=== PATIENT | male | born 1930 | race Caucasian/White ===

== ENCOUNTER 2016-05-09 10:22 | Emergency (ER) | payer MEDICARE ==
[2016-05-09 10:38] VITALS: TEMP 98.5
--- NOTE | 2016-05-09 11:20 | RAD ---
EXAM DESCRIPTION: XR CHEST 2 VIEWS 05/09/2016 CLINICAL HISTORY: 85 y/o , M, edema, new flutter COMPARISON: None. FINDINGS: The lungs are clear without focal consolidation or pleural effusion. The heart is enlarged. The mediastinal contours are normal in appearance. There are vascular calcifications along the aortic arch. There is a healed right midclavicular fracture. The rest of the osseous structures are normal in appearance. The upper abdomen is grossly normal. IMPRESSION: Cardiomegaly, otherwise no acute cardiopulmonary disease. Electronically signed by: Brook Zayas MD 05/09/2016 11:19
[2016-05-09] MEDS ORDERED: FUROSEMIDE INJ 40 MG/4 ML VIAL IV ONE (12:40)
[2016-05-09] MEDS ORDERED: cefTRIAXone SODIUM 1 GM in SODIUM CHL 0.9% 50ML MIN-BAG+ 50 ML IVPB ONE (12:55)
[2016-05-09] MEDS ORDERED: METOPROLOL TARTRATE 25 MG TAB PO ONE (13:02)
[2016-05-09] MEDS ORDERED: cefTRIAXone SODIUM 1 GM VIAL ONE (13:03)
[2016-05-09] MEDS ORDERED: ENOXAPARIN SODIUM 100 MG/ML SYG SUBCU ONE (13:04)
[2016-05-09] MEDS ORDERED: SODIUM CHL 0.9% 50ML MIN-BAG+ 50 ML IVPB ONE (13:04)
--- NOTE | 2016-05-09 14:12 | ED.PDOC ---
History of Present Illness - General Chief Complaint: Cardiovascular Problem Stated Complaint: irregular heart rate,swelling Time Seen by Provider: 05/09/16 10:29 Source: patient Exam Limitations: no limitations - History of Present Illness Initial Comments: the patient is an 85-year-old male who presented to the emergency room due to mild progressive shortness of breath over the last few days as well as increasing swelling to bilateral hands over the last few days with the right more than the left. The patient has had some increasing edema to bilateral feet over the last 3 months. He did have a bilateral lower extremity Doppler that was negative for any DVT approximately 1 month ago. It is reported that he had an EKG around that same time showed a sinus rhythm. I do not have that EKG to confirm that. He is not having any chest pain or palpitations. He is not having any syncope or near-syncope. He does get mildly short of breath with any activity. He is not significantly short of breath with lying back. Oxygen saturations are around 93-94% with sitting up and do drop to around 90% with lying back. The patient does have +3 edema to bilateral lower extremity and +2 edema to the right hand as well as +1 edema to the left hand. He and family are fairly adamant that the swelling in the hands has just occurred over the last couple of days. Timing/Duration: unsure Severity: mild Improving Factors: nothing Worsening Factors: nothing Associated Symptoms: cough, malaise, shortness of breath Allergies/Adverse Reactions: Allergies NO KNOWN ALLERGY Allergy (Verified 05/09/16 10:55) Review of Systems - Review of Systems Constitutional: States: no symptoms reported EENTM: States: no symptoms reported Respiratory: States: cough - mild, short of breath Cardiology: States: edema Gastrointestinal/Abdominal: States: no symptoms reported Genitourinary: States: no symptoms reported Musculoskeletal: States: no symptoms reported Skin: States: no symptoms reported Neurological: States: no symptoms reported All other Systems: No Change from Baseline Past Medical History (General) - Patient Medical History Hx Asthma: Yes Hx Cardiac Disorders: Yes Hx Congestive Heart Failure: No Hx Hypertension: Yes Hx Diabetes: Yes - Vaccination History Hx Influenza Vaccination: Yes Hx Pneumococcal Vaccination: Yes - Social History Hx Tobacco Use: No Family Medical History - Family History Father Family History: Unknown Living Status: Physical Exam - Physical Exam General Appearance: Alert, Comfortable, No apparent distress Eye Exam: bilateral normal Ears, Nose, Throat: normal ENT inspection, normal pharynx Neck: full range of motion, supple, normal inspection Respiratory: chest non-tender, no respiratory distress, no accessory muscle use , other - the patient does have some bibasilar rales. No wheezes. Good air movement. Cardiovascular/Chest: normal peripheral pulses, no edema, other - regular rate but irregular rhythm Peripheral Pulses: radial,right: 2+, radial,left: 2+, dorsalis pedis,right: 2+, dorsalis pedis,left: 2+ Gastrointestinal/Abdominal: non tender, soft Rectal Exam: deferred Back Exam: normal inspection, no CVA tenderness Extremity: normal range of motion, non-tender, normal inspection, no pedal edema , normal capillary refill Neurologic: alert, normal mood/affect, oriented x 3 Skin Exam: normal color Comments: Vital Signs - 24 hr 05/09/16 05/09/16 05/09/16 10:34 11:14 11:47 Temperature 98.5 F Pulse Rate [ 99 H 90 Right Brachial] Respiratory 20 Rate Blood Pressure 111/76 [Right Arm] O2 Sat by Pulse 94 L 96 Oximetry Progress - Progress Progress: 05/09/16 14:14 the patient is a 85-year-old male presenting with edema that has progressed to the upper extremities. He does appear to have new onset atrial flutter with good rate control sometime within the last 1-2 months. He has not been on significant anticoagulation and was given a dose of Lovenox here. He is not hypoxic and not in respiratory distress but he has had a significant deterioration still over the last 2 days. For this reason I do feel it is pertinent that he be evaluated by cardiology in the more rapid manner. He does not appear to be tolerating theatrial flutter, even with rate controll, very well. there may be some background ischemia contributing that needs evaluation. we will transfer for cardiac evaluation. He has been given Lovenox and a dose of Lasix. He has started to diurese. Systolic blood pressures have been around 110. He has received a dose of oral metoprolol. I'm uncomfortable at this time given medications for cardioversion, without an echocardiogram first. Transfer for higher level of care.he does also incidentally, appear to have a small urinary tract infection. He has received a dose of Rocephin here for that. 05/09/16 14:18 - Results/Orders Results/Orders: Laboratory Tests 05/09/16 05/09/16 10:45 11:47 WBC 7.5 RBC 3.98 L Hgb 11.6 L Hct 36.0 L MCV 90.4 MCH 29.1 MCHC 32.4 L RDW 14.4 Plt Count 188 MPV 8.7 Absolute Neuts (auto) 5.60 Absolute Lymphs (auto) 1.00 Absolute Monos (auto) 0.70 Absolute Eos (auto) 0.10 Absolute Basos (auto) 0.10 Neutrophils % 74.1 Lymphocytes % 12.8 L Monocytes % 10.0 H Eosinophils % 1.8 Basophils % 1.3 PT 13.8 H INR 1.230 PTT (SP) 30.6 D-Dimer, Quantitative 319 H* Sodium 140 Potassium 4.2 Chloride 108 Carbon Dioxide 24 Anion Gap 12.2 BUN 23 H Creatinine 0.83 BUN/Creatinine Ratio 27.7 H Random Glucose 64 L Serum Osmolality 281.2 Calcium 8.7 Magnesium 2.0 Total Bilirubin 0.9 AST 28 ALT 20 Alkaline Phosphatase 68 Creatine Kinase 188 H CK-MB (CK-2) 4.6 H* CK-MB (CK-2) % 2.45 Troponin I 0.04 B-Natriuretic Peptide 300.0 H* Serum Total Protein 7.1 Albumin 3.8 Globulin 3.3 Albumin/Globulin Ratio 1.2 TSH 1.75 Urine Color Yellow Urine Appearance Cloudy Urine pH 6.0 Ur Specific [place] 1.025 Urine Protein Trace Urine Glucose (UA) Negative Urine Ketones Negative Urine Blood Trace-lysed H Urine Nitrite Positive H Urine Bilirubin Negative Urine Urobilinogen >= 8.0 H Ur Leukocyte Esterase Small H Urine RBC 0-1 Urine WBC 10-20 H Ur Epithelial Cells 10-20 Urine Bacteria 2+ H Departure - Departure Clinical Impression: Atrial flutter with controlled response, Cystitis CHF, acute on chronic Qualifiers: Congestive heart failure type: unspecified congestive heart failure type Qualifier Code: (I50.9) Heart failure, unspecified Disposition: Transfer to Hospital Referrals: Jeremiah Chapman MD [Primary Care Provider] - 1-2 Weeks Transfer to Outside Facility - [place] [facility] [place] for Transfer: required specialist not available - dr jc
[2016-05-09 23:07] VITALS: BP 153/92
[2016-05-10 00:16] VITALS: O2SAT 95
== END 2016-05-09 23:45 | disposition short-term general hospital (02) ==
LOC: ER 10:22
DX: I48.92 Unspecified atrial flutter (principal); N30.90 Cystitis, unspecified without hematuria; I11.0 Hypertensive heart disease with heart failure; I50.9 Heart failure, unspecified; J45.909 Unspecified asthma, uncomplicated; E11.9 Type 2 diabetes mellitus without complications
CPT/HCPCS: 36415; 71020; 80053; 81001; 82550; 82553; 83735; 83880; 84443; 84484; 85025; 85379; 85610; 85730; 87086; 87088; 87186; 93005; J0696; J1650; J1940; J7050

== ENCOUNTER → 2016-06-02 | Outpatient (CLI) | payer MEDICARE | END | disposition home or self-care (01) | LOC: GMAB 14:33 | PROVIDERS: ATTEND Family Medicine | DX: M79.641 Pain in right hand (principal) ==

== ENCOUNTER → 2016-06-17 | Outpatient (CLI) | payer MEDICARE ==
--- NOTE | 2016-06-18 07:19 | CT ---
EXAM DESCRIPTION: CT CHEST WITHOUT IV CONTRAST CLINICAL HISTORY: Thoracic aortic aneurysm. COMPARISON: None Available. TECHNIQUE: Noncontrast spiral CT of the chest with coronal and sagittal reformatted images. FINDINGS: Tortuous mildly ectatic thoracic aorta. Greatest transverse dimension ascending aorta 4.4 cm. Heart size is slightly enlarged. Coronary artery calcifications Moderate sized pericardial effusion. No nodularity. No infiltration of the epicardial or pericardial fat No mediastinal or hilar mass lesion or adenopathy Thyroid gland is normal Calcified granuloma at the left lung apex. No pulmonary edema, alveolar infiltrate or effusion No mass or adenopathy in the visualized upper abdomen Multilevel degenerative change in the thoracic spine. No acute bony abnormality IMPRESSION: Moderate size pericardial effusion and pulmonary process Old granulomatous disease Tortuous ectatic aorta, 4.4 cm greatest transverse dimension Electronically signed by: Zan Winston MD 06/18/2016 07:17
== END | disposition home or self-care (01) ==
LOC: CT 08:10
PROVIDERS: ATTEND Internal Medicine Cardiovascular Disease
DX: I72.0 Aneurysm of carotid artery (principal)

== ENCOUNTER → 2016-08-17 | Outpatient (CLI) | payer MEDICARE | END | disposition home or self-care (01) | LOC: GMAB 11:12 | PROVIDERS: ATTEND Family Medicine | DX: Z12.5 Encounter for screening for malignant neoplasm of prostate (principal); I10 Essential (primary) hypertension | CPT/HCPCS: 84443; 84550; G0103 ==

== ENCOUNTER → 2017-06-28 | Outpatient (CLI) | payer MEDICARE ==
--- NOTE | 2017-06-28 11:20 | US ---
Soft tissue ultrasound HISTORY: Pain in right knee COMPARISON: None TECHNIQUE: Grayscale and color Doppler sonographic evaluation of soft tissue anterior and posterior to right knee FINDINGS: Irregularly-shaped and heterogeneous fluid collection is identified anterior to the knee joint measuring 2.8 x 1.7 x 1.1 cm. There is no obvious internal or marginal vascularity for this finding which is also not well loculated. There is heterogeneous echotexture within this fluid collection. Posterior to the knee, in the popliteal fossa, is a curvilinear fluid collection measuring 6.1 x 3.1 x 1.3 cm with slightly heterogeneous echotexture internally but no internal nor marginal vascularity. Popliteal vein is unremarkably patent. IMPRESSION: 1. Possible hematoma or very early phlegmon anterior to right knee. 2. Popliteal fossa cyst in right knee Electronically signed by: Yobany Monteiro MD 06/28/2017 11:19 AM FIRM ADMINISTRATOR
== END ==
LOC: US 10:32
PROVIDERS: ATTEND Nurse Practitioner Family
DX: M25.469 Effusion, unspecified knee (principal); M71.21 Synovial cyst of popliteal space [Baker], right knee

== ENCOUNTER 2018-12-05 05:39 | Day surgery (SDC) | payer MEDICARE ==
[2018-12-05] MEDS ORDERED: MOXIFLOXACIN HCL (OPHTH) 1 DROP DROPS ONE (05:54)
[2018-12-05] MEDS ORDERED: TROP 1%/CYCLOPEN 1%/PHENYL 2% DROPS ONE (05:54)
[2018-12-05] MEDS ORDERED: PROPARACAINE 0.5% OPHTH SOL 15 ML BTTL ONE (05:54)
[2018-12-05] MEDS ORDERED: MIDAZOLAM INJ 2 MG/2 ML VIAL ONE (11:04)
[2018-12-05] MEDS ORDERED: LIDOCAINE 1% MPF 2 ML VIAL INJ ONE (11:12)
[2018-12-05] MEDS ORDERED: MOXIFLOXACIN HCL (OPHTH) 1 DROP DROPS RIGHT_EYE ONE ×2 (11:13→11:22)
[2018-12-05] MEDS ORDERED: BRIMONIDINE 0.2% OPHTH DROPS RIGHT_EYE ONE ×2 (11:13→11:22)
[2018-12-05] MEDS ORDERED: TOBRAMYCIN SULF 0.3 % OPHT SOL 1 DROP RIGHT_EYE ONE ×2 (11:13→11:22)
[2018-12-05] MEDS ORDERED: DEXAMETHASONE 0.1% OPHTH SOL 1 DROP RIGHT_EYE ONE ×2 (11:13→11:22)
== END 2018-12-05 11:56 | disposition home or self-care (01) ==
LOC: AMB 05:39
PROVIDERS: ATTEND Ophthalmology
DX: H25.11 Age-related nuclear cataract, right eye (principal); I10 Essential (primary) hypertension; I25.10 Atherosclerotic heart disease of native coronary artery without angina pectoris; E11.36 Type 2 diabetes mellitus with diabetic cataract; Z79.84 Long term (current) use of oral hypoglycemic drugs; Z79.01 Long term (current) use of anticoagulants; Z79.899 Other long term (current) drug therapy
CPT/HCPCS: 00142; 36416; 66984; 82948; J2250

== ENCOUNTER 2018-12-19 05:32 | Day surgery (SDC) | payer MEDICARE ==
[2018-12-19] MEDS ORDERED: TROP 1%/CYCLOPEN 1%/PHENYL 2% DROPS ONE (05:59)
[2018-12-19] MEDS ORDERED: MIDAZOLAM INJ 2 MG/2 ML VIAL ONE (07:10)
[2018-12-19] MEDS: PROPARACAINE 0.5% OPHTH SOL 15 ML BTTL ONE (09:16)
[2018-12-19] MEDS: MOXIFLOXACIN HCL (OPHTH) 1 DROP DROPS LEFT_EYE ONE ×2 (09:23→09:32)
[2018-12-19] MEDS: DEXAMETHASONE 0.1% OPHTH SOL 1 DROP LEFT_EYE ONE ×2 (09:23→09:32)
[2018-12-19] MEDS: BRIMONIDINE 0.2% OPHTH DROPS LEFT_EYE ONE ×2 (09:23→09:32)
[2018-12-19] MEDS: LIDOCAINE 1% MPF 2 ML VIAL INJ ONE (09:23)
[2018-12-19] MEDS: TOBRAMYCIN SULF 0.3 % OPHT SOL 1 DROP LEFT_EYE ONE ×2 (09:23→09:32)
== END 2018-12-19 10:15 | disposition home or self-care (01) ==
LOC: AMB 05:32
PROVIDERS: ATTEND Ophthalmology
DX: H25.12 Age-related nuclear cataract, left eye (principal); E11.36 Type 2 diabetes mellitus with diabetic cataract; Z79.01 Long term (current) use of anticoagulants; Z79.899 Other long term (current) drug therapy
CPT/HCPCS: 00142; 36416; 66984; 82948; J2250

== ENCOUNTER 2019-11-12 14:50 | Inpatient (IN) | payer MEDICARE ==
[2019-11-12] MEDS ORDERED: SODIUM CHLORIDE 0.9% (FLUSH) 10 ML SYG IV PRN (16:25)
--- NOTE | 2019-11-12 16:26 | ED.PDOC ---
History of Present Illness - General Time Seen by Provider: 11/12/19 16:25 Source: patient - History of Present Illness Initial Comments: 88-year-old male with PMH of hypertension, CHF, diabetes, A. fib on Eliquis who presents with chief complaint of left lower leg pain. Reports he had a fall 4 days ago at home and sustained injury to the lateral aspect of the left lower leg. Reports worsening pain, redness, and swelling to the lateral aspect of the left lower leg since the injury. Currently reports minimal pain at rest but reports moderate severity sharp/throbbing constant pain to the lateral lower left leg with any weightbearing and walking and causing him to limp. He is taking some [id number] analgesics with good pain control. He was seen a couple days ago in the clinic since the area had worsening redness and swelling. X-ray imaging was done which apparently showed no fractures. The patient was discharged home on oral antibiotics and he reports compliance with the treatment. However the redness and swelling have continued to worsen. Denies any fevers, chills, chest pain, dyspnea, abdominal pain, weakness, numbness. Denies any history of blood clots. Allergies/Adverse Reactions: Allergies NO KNOWN ALLERGY Allergy (Verified 11/12/19 18:03) Home Medications: Ambulatory Orders Allopurinol 300 mg PO DAILY 12/05/18 Apixaban [Eliquis] 2.5 mg PO DAILY 12/05/18 Aspirin [Aspirin EC] 81 mg PO DAILY 12/05/18 Atorvastatin Calcium [Lipitor] 20 mg PO DAILY 12/05/18 Cyanocobalamin [Vitamin B-12] 1,000 mcg PO DAILY 12/05/18 Diltiazem HCl 30 mg PO DAILY 12/05/18 Doxazosin Mesylate 4 mg PO DAILY 12/05/18 Furosemide 40 mg PO DAILY 12/05/18 Lisinopril 20 mg PO DAILY 12/05/18 Metformin HCl [Metformin Hydrochloride E] 250 mg PO DAILY 12/05/18 Sotalol [Betapace] 40 tablet PO BID 12/05/18 diphenhydrAMINE HCL [Benadryl] 75 mg PO PRN PRN 12/05/18 Review of Systems - Review of Systems Review of Systems: 11/12/19 16:55 As per HPI All other Systems: Reviewed and Negative Past Medical History (General) - Patient Medical History Hx Asthma: Yes Hx Cardiac Disorders: Yes Hx Congestive Heart Failure: No Hx Hypertension: Yes Hx Diabetes: Yes - Vaccination History Hx Influenza Vaccination: Yes Hx Pneumococcal Vaccination: Yes - Social History Hx Tobacco Use: No Family Medical History - Family History Father Family History: Unknown Living Status: Physical Exam - Physical Exam General Appearance: Alert, Comfortable, No apparent distress, Obese Eye Exam: bilateral normal Ears, Nose, Throat: hearing grossly normal, normal ENT inspection, normal pharynx Neck: non-tender, full range of motion, supple, normal inspection Respiratory: lungs clear, normal breath sounds, no respiratory distress, no accessory muscle use Cardiovascular/Chest: normal peripheral pulses, regular rate, rhythm, no gallop, no JVD, no murmur Peripheral Pulses: radial,right: 2+, radial,left: 2+ Gastrointestinal/Abdominal: non tender, soft, no organomegaly Back Exam: normal inspection Extremity: other - The left lower leg has 3+ pitting edema involving the foot, ankle and all the way up to the upper calf. To the lateral aspect of the left lower leg there is an approximately 3 x 3 cm abrasion wound with underlying area of redness/warmth/erythema approximately 6 x 6 cm in size which is markedly tender to palpation. Neurologic: rate supervisor II-XII nml as tested, no motor/sensory deficits, alert, normal mood/affect, oriented x 3 Skin Exam: warm/dry Progress - Progress Progress: 11/12/19 16:57 Left lower extremity pain and swelling -Concern for cellulitis of the left lower extremity. Consider also left lower extremity fracture, DVT, abscess, other. -Obtain blood work, blood cultures, x-ray imaging of the left tib-fib and foot -Place PIV, begin IV antibiotics. Plan for admission as patient has failed trial of outpatient oral antibiotics and appears to be rapidly worsening in setting of his chronic medical conditions, especially diabetes. 11/12/19 18:19 -Patient remains stable. Lab work-up reveals WBC 8500 with 72% segs and no bands. Remainder blood work unremarkable. X-ray imaging of the left foot and tib-fib reveal soft tissue swelling but no acute bony processes or fractures. -I discussed the patient with Manuel Olson, who accepts the patient for inpatient admission for left lower extremity cellulitis. We will begin the patient on IV antibiotics with vancomycin 1500 mg IV. As d-dimer test are running extremely low at the moment, withheld this test in light that patient is on Coumadin and that he will receive Doppler venous ultrasound of the lower extremity likely tomorrow as an inpatient. Diogo Boyd MD Billing #[id number] 11/12/19 16:25 Sodium Chloride 0.9% (Flush) [Saline Flush Syringe] 10 ml IV PRN PRN 11/12/19 17:08 BLOOD CULTURE Stat 11/12/19 17:42 RESPIRATORY PANEL 2 Stat 11/12/19 18:15 Vancomycin HCl Inj 1,000 mg Vancomycin HCl Inj 500 mg Sodium Chloride 0.9% 250Ml [NS 250ml] 250 ml IVPB ONCE 11/13/19 09:00 Pulse Ox Daily Laboratory Results - last 24 hr 11/12/19 11/12/19 11/12/19 16:57 16:57 16:57 WBC 8.5 RBC 3.59 L Hgb 11.7 L Hct 35.4 L MCV 98.4 H MCH 32.6 H MCHC 33.2 RDW 16.7 H Plt Count 212 MPV 8.6 Absolute Neuts (auto) 6.20 Absolute Lymphs (auto) 1.10 Absolute Monos (auto) 0.80 Absolute Eos (auto) 0.30 Absolute Basos (auto) 0.10 Neutrophils % 72.7 Lymphocytes % 13.3 L Monocytes % 9.9 H Eosinophils % 3.4 Basophils % 0.7 PT 11.0 H INR 1.11 PTT (SP) 26.7 D-Dimer, Quantitative Cancelled Sodium 139 Potassium 4.2 Chloride 107 Carbon Dioxide 23 Anion Gap 13.2 BUN 29 H Creatinine 0.87 BUN/Creatinine Ratio 33.3 H Random Glucose 85 Serum Osmolality 282.6 Calcium 8.7 B-Natriuretic Peptide 305.0 H* Departure - Departure Clinical Impression: Cellulitis of leg, left Time of Disposition: 18:18 Disposition: Admit Patient Condition: Fair Referrals: Flavia Guerra NP [Primary Care Provider] - 1-2 Weeks Home Medications: Ambulatory Orders Allopurinol 300 mg PO DAILY 12/05/18 Apixaban [Eliquis] 2.5 mg PO DAILY 12/05/18 Aspirin [Aspirin EC] 81 mg PO DAILY 12/05/18 Atorvastatin Calcium [Lipitor] 20 mg PO DAILY 12/05/18 Cyanocobalamin [Vitamin B-12] 1,000 mcg PO DAILY 12/05/18 Diltiazem HCl 30 mg PO DAILY 12/05/18 Doxazosin Mesylate 4 mg PO DAILY 12/05/18 Furosemide 40 mg PO DAILY 12/05/18 Lisinopril 20 mg PO DAILY 12/05/18 Metformin HCl [Metformin Hydrochloride E] 250 mg PO DAILY 12/05/18 Sotalol [Betapace] 40 tablet PO BID 12/05/18 diphenhydrAMINE HCL [Benadryl] 75 mg PO PRN PRN 12/05/18 Decision To Admit - Decistion To Admit Decision to Admit Reason: Admit from ER Decision to Admit Date: 11/12/19 Decision to Admit Time: 18:19
--- NOTE | 2019-11-12 17:32 | RAD ---
EXAM: XR Left Foot Complete, 3 or More Views CLINICAL HISTORY: The patient is 88 years old and is Male; Ground-level fall 5 days ago, LLE pain/swelling TECHNIQUE: Three views of the left foot. COMPARISON: No relevant prior studies available. FINDINGS: Bones/joints: Degenerative changes in the first MTP joint and interphalangeal joint of the first through fourth digits. Achilles enthesophyte. No acute fracture. No dislocation. Soft tissues: Forefoot soft tissue swelling. No radiopaque foreign body. Vasculature: Atherosclerotic calcification. IMPRESSION: Forefoot soft tissue swelling. No acute fracture visualized. Electronically signed by: Lenore Kaba MD 11/12/2019 5:30 PM CDT
--- NOTE | 2019-11-12 17:34 | RAD ---
EXAM: XR Left Tibia and Fibula, 2 Views CLINICAL HISTORY: The patient is 88 years old and is Male; Ground-level fall 5 days ago, LLE pain/swelling TECHNIQUE: Two views of the left tibia and fibula. COMPARISON: No relevant prior studies available. FINDINGS: Bones/joints: Unremarkable. No acute fracture. No dislocation. Soft tissues: Unremarkable. No radiopaque foreign body. Vasculature: Atherosclerotic calcification. IMPRESSION: No acute findings. Electronically signed by: Lenore Kaba MD 11/12/2019 5:32 PM CDT
[2019-11-12] MEDS ORDERED: VANCOMYCIN HCL INJ 1,000 MG, VANCOMYCIN HCL INJ 500 MG in SODIUM CHLORIDE 0.9% 250ML 25... IVPB ONE (18:15)
[2019-11-12] MEDS ORDERED: traMADol HCL 50 MG TAB PO ONE (21:11)
[2019-11-12] MEDS ORDERED: traMADol HCL 50 MG TAB ONE (21:13)
--- NOTE | 2019-11-12 21:59 | HP ---
SUPERVISING PHYSICIAN: Zan Paz M.D. CHIEF COMPLAINT: Pain to his left lower leg. HISTORY OF PRESENT ILLNESS: Mr. Thapa is an 88 year-old male patient that was seen on the evening of 11/13/19. He has a history of diabetes, congestive heart failure, hypertension and atrial fibrillation on Eliquis. He endorses that 4 days previously at home he sustained in injury to the lateral aspect of his left lower leg while attempting to clean a cast iron skillet outside. He went to step on a step and misjudged the height and hit the edge of the step with his left leg. He went to see Marjorie Guerra in the walk-in clinic in [place] and was treated for questionable cellulitis. He was started on treatment with clindamycin. He endorses that the area of concern on the left lateral aspect of his leg continues to increase in size and increasingly more tender to touch. In workup in the Emergency Room, he was found to have a normal white count at 8,500 without a left shift. ESR was a little elevated at 22 but his CPR was normal. Chemistry showed normal electrolytes with BUN of 29, creatinine 0.87, BNP was a little elevated at 305. Blood sugar was at 85. X- rays of his left lower extremity were without acute findings. He denies any actual fevers, chills or body aches, but notes he is quite tender when he applies weight to that left leg. He is now going to be placed in observation for surgical consultation with Dr. Christiansen. PAST MEDICAL HISTORY: 1. Asthma. 2. Coronary artery disease. 3. Hypertension. 4. Diabetes. 5. Atrial fibrillation/flutter on chronic direct oral anticoagulation in the form of Eliquis. PAST SURGICAL HISTORY: 1. Cardiac stent placement. No other surgeries listed. CURRENT MEDICATIONS: 1. Benadryl 75 mg p.r.n. 2. Clindamycin 300 mg t.i.d. 3. Lasix 40 mg daily. 4. Doxazosin 4 mg daily. 5. Vitamin B12 1,000 mcg daily. 6. Aspirin 81 mg daily. 7. Metoprolol 12.5 mg b.i.d. 8. Lisinopril 20 mg daily. 9. Lipitor 20 mg daily. 10. Metformin 250 mg daily. 11. Sotalol 40 mg b.i.d. 12. Eliquis 2.5 mg b.i.d. ALLERGIES: NO KNOWN DRUG ALLERGIES. REVIEW OF SYSTEMS: CONSTITUTIONAL: Denies any fevers, chills or any malaise. HEENT: Denies any headaches, vision changes, sore throat, nasal congestion. CARDIOVASCULAR: Denies any chest pains, palpitations or syncopal episodes. GASTROINTESTINAL: Denies any nausea, vomiting, diarrhea, constipation or abdominal pain. GENITOURINARY: Denies any dysuria, hematuria or polyuria. EXTREMITIES: As per history of present illness. NEUROLOGIC: Denies any ataxia, seizures, focal deficits. SKIN: Denies any lesions, rashes, moles or unexplained changes. HEMATOLOGIC: Does have some easy bruising associated with Eliquis but denies any unexplained bleeding or transfusion reactions. PHYSICAL EXAMINATION: VITAL SIGNS: Temperature 98, pulse 51, blood pressure 143/61, respirations 16, satting 96% on room air. GENERAL: The patient is resting comfortably. Does not appear to be in any acute distress. HEENT: Tympanic membranes clear bilaterally. Oropharynx is pink, moist without any lesions. NECK: Supple, nontender with full range of motion. No jugular venous distention. CHEST: Lung sounds are clear to auscultation bilaterally with a regular rate and rhythm on bedside monitor. ABDOMEN: Nontender, soft. Positive bowel sounds. BACK: Without any noted trauma. No CVA tenderness. No paravertebral tenderness. RECTAL: Exam is deferred. EXTREMITIES: Left lower leg shows 3+ pitting edema involving the foot, ankle and extending up into the calf. Noted on the outside lateral aspect of the left lower leg is an approximately 3 x 3 cm wound that appears to be a hematoma with some redness and flocculation in the middle. NEUROLOGIC: Cranial nerves II-XII are grossly intact. No sensory or motor deficits. She is alert and oriented times three. SKIN: Warm, pink and dry, except for noted changes on the left lower extremity. LABORATORY: White count showing to be normal at 8,500 with hemoglobin 11.7, hematocrit 35.4 with platelet count 212,000. PT was 11, PTT was 26.7, D-dimer was negative. Chemistry showed normal electrolytes with BUN 20, creatinine 0.87, BNP was a little elevated at 305. Blood sugars were ranging between 65 and 85. RADIOLOGY: X-rays of the left lower extremity were without any acute findings. Ultrasound of the left lower extremity was without any acute findings of acute DVT. Chest x-ray shows large heart without congestive failure. ASSESSMENT: 1. Soft tissue hematoma involving the left lower extremity status post blunt force trauma with concerns for cellulitis having failed outpatient treatment process. 2. History of congestive heart failure without any echocardiogram available at time of admission with a slightly elevated BNP. 3. Hypertension. 4. Diabetes mellitus. PLAN: We are going to admit the patient to the hospital for surgical consultation with Dr. Christiansen. He has seen the patient in consultation and is planning to do an incision and drainage on the patient in the morning. We started the patient on antibiotics to cover for any developing cellulitis concern with Rocephin and Vancomycin. Will continue to monitor the patient closely until we can transition to outpatient management, hopefully be able to discharge later tomorrow. Until then the plan of care continues with sliding scale insulin per protocol. Will order a BNP in the morning as well as ordered a preoperative EKG and a chest film. Until we can transition the patient to outpatient management, he length of stay will be 1 to 2 days. Will continue to monitor and treat as needed. #[id number] [facility]
[2019-11-13] MEDS ORDERED: diphenhydrAMINE HCL 25 MG CAP PO PRN (00:03)
[2019-11-13] MEDS ORDERED: HYDROcodone 5MG/APAP 325MG 1 EA TAB PO PRN (00:06)
[2019-11-13] MEDS ORDERED: MAGNESIUM HYDROXIDE 30 ML UD PO PRN (00:06)
[2019-11-13] MEDS ORDERED: ACETAMINOPHEN 325 MG TAB PO PRN (00:06)
[2019-11-13] MEDS ORDERED: ONDANSETRON INJ 4 MG/2 ML VIAL IV PRN (00:06)
[2019-11-13] MEDS ORDERED: DEXTROSE 50% 25 GM/50 ML SYG IV PRN (00:06)
[2019-11-13] MEDS ORDERED: GLUCAGON INJ 1 MG VIAL SUBCU PRN (00:06)
[2019-11-13] MEDS ORDERED: ALUM & MAG HYDROX-SIMETHICONE 30 ML UD PO PRN (00:06)
[2019-11-13] MEDS ORDERED: SODIUM CHLORIDE 0.9% (FLUSH) 10 ML SYG IV PRN (00:06)
[2019-11-13] MEDS ORDERED: VANCOMYCIN PER PHARMACY IVPB SCH (00:30)
[2019-11-13] MEDS ORDERED: cefTRIAXone SODIUM 1 GM VIAL ONE (00:55)
[2019-11-13] MEDS ORDERED: APIXABAN 5 MG TAB PO ONE ×2 (00:55→07:15)
[2019-11-13] MEDS ORDERED: SODIUM CHL 0.9% 50ML MIN-BAG+ 50 ML IVPB ONE (00:56)
[2019-11-13] MEDS: cefTRIAXone SODIUM 1 GM in SODIUM CHL 0.9% 50ML MIN-BAG+ 50 ML IVPB SCH (01:05)
[2019-11-13] MEDS: NON-FORMULARY MEDICATION 1 EA MIS (Apixaban [Eliquis] 2.5 MG) PO SCH ×2 (01:06→07:59)
[2019-11-13] MEDS: IV SET AND CAP CHANGE INJ INJ SCH (01:06)
[2019-11-13] MEDS: METOPROLOL TARTRATE 25 MG TAB PO SCH ×3 (01:07→20:39)
[2019-11-13] MEDS ORDERED: CYANOCOBALAMIN 1,000 MCG TAB ONE (07:15)
[2019-11-13] MEDS ORDERED: DOXAZOSIN MESYLATE 2 MG TAB ONE (07:15)
[2019-11-13] MEDS ORDERED: LISINOPRIL 10 MG TAB ONE (07:16)
[2019-11-13] MEDS: INSULIN LISPRO 100 UNITS/ML PEN SUBCU SCH ×4 (07:51→21:09)
[2019-11-13] MEDS: ASPIRIN (ENTERIC COATED) 81 MG TAB PO SCH (08:00)
[2019-11-13] MEDS: FUROSEMIDE 40 MG TAB PO SCH (08:01)
[2019-11-13] MEDS: ALLOPURINOL 300 MG TAB PO SCH (08:03)
[2019-11-13] MEDS ORDERED: DOXAZOSIN MESYLATE 4 MG PO SCH (09:00)
[2019-11-13] MEDS ORDERED: NON-FORMULARY MEDICATION 1 EA MIS (Lisinopril [Lisinopril] 20 MG) PO SCH (09:00)
[2019-11-13] MEDS ORDERED: metFORMIN XR 500 MG TAB.ER.24 PO SCH (09:00)
[2019-11-13] MEDS ORDERED: NON-FORMULARY MEDICATION 1 EA MIS (Cyanocobalamin [Vitamin B-12] 1,000 MCG) PO SCH (09:00)
[2019-11-13] MEDS ORDERED: ATORVASTATIN 20 MG TAB PO SCH (09:00)
[2019-11-13] MEDS: SOTALOL 80 MG TAB PO SCH ×2 (10:40→20:38)
--- NOTE | 2019-11-13 12:24 | US ---
EXAM DESCRIPTION: Venous,Lower Extremity LT: ULTRASOUND. CLINICAL HISTORY: Edema LLE; cellulitis COMPARISON: None Available. TECHNIQUE: Scott-scale and doppler sonographic evaluation of the deep venous system of the left lower extremity. FINDINGS: Doppler evaluation shows normal color flow and normal phasicity and augmentation of the left common femoral vein, femoral vein, popliteal vein, greater saphenous vein, junction with the CFV. Also normal color flow and normal phasicity and augmentation of the peroneal, and posterior tibial vein. The left lower extremity deep veins were completely compressible; normal occlusion with transducer pressure. Scott-scale survey showed no echogenic thrombus within these veins. Minimal interstitial edema in the subcutaneous adipose tissue of the left calf. IMPRESSION: 1. Duplex ultrasound evaluation of the left lower extremity deep venous system showing no evidence of thrombosis. 2. Minimal interstitial edema in the subcutaneous adipose tissue of the left calf. Electronically signed by: Parminder Falcon MD 11/13/2019 12:22 PM CDT
[2019-11-13] MEDS: VANCOMYCIN HCL INJ 1,000 MG, VANCOMYCIN HCL INJ 500 MG in SODIUM CHLORIDE 0.9% 250ML 25... IVPB SCH (16:51)
[2019-11-13] MEDS: APIXABAN 5 MG TAB PO SCH (20:38)
[2019-11-13] MEDS: diphenhydrAMINE HCL 25 MG CAP PO PRN (20:38)
[2019-11-14] MEDS: cefTRIAXone SODIUM 1 GM in SODIUM CHL 0.9% 50ML MIN-BAG+ 50 ML IVPB SCH (00:02)
[2019-11-14] MEDS: INSULIN LISPRO 100 UNITS/ML PEN SUBCU SCH ×4 (07:25→20:54)
[2019-11-14] MEDS: metFORMIN HCL 500 MG TAB PO SCH (07:26)
[2019-11-14] MEDS ORDERED: DOXAZOSIN MESYLATE 2 MG TAB ONE (07:32)
[2019-11-14] MEDS ORDERED: CYANOCOBALAMIN 1,000 MCG TAB ONE (07:32)
[2019-11-14] MEDS ORDERED: LISINOPRIL 10 MG TAB ONE (07:33)
[2019-11-14] MEDS: ALLOPURINOL 300 MG TAB PO SCH (08:06)
[2019-11-14] MEDS: DOXAZOSIN MESYLATE 2 MG TAB PO SCH (08:06)
[2019-11-14] MEDS: APIXABAN 5 MG TAB PO SCH ×2 (08:06→20:53)
[2019-11-14] MEDS: ASPIRIN (ENTERIC COATED) 81 MG TAB PO SCH (08:07)
[2019-11-14] MEDS: CYANOCOBALAMIN 1,000 MCG TAB PO SCH (08:07)
[2019-11-14] MEDS: FUROSEMIDE 40 MG TAB PO SCH (08:07)
[2019-11-14] MEDS: LISINOPRIL 10 MG TAB PO SCH (08:07)
[2019-11-14] MEDS: SOTALOL 80 MG TAB PO SCH ×2 (08:08→20:52)
[2019-11-14] MEDS: METOPROLOL TARTRATE 25 MG TAB PO SCH ×2 (08:08→20:54)
--- NOTE | 2019-11-14 13:46 | US ---
EXAM DESCRIPTION: Soft Tissue,Extremity: ULTRASOUND. CLINICAL HISTORY: 88 years Male Lateral aspect of LLE hematoma vs abcess COMPARISON: None Available. TECHNIQUE: Transcutaneous scanning: Scott-scale and Doppler modes. FINDINGS: Scanning of the left lateral lower leg. Palpable mass. Hypoechoic circumscribed mass with echogenic margins measuring 4.9 x 1.7 x 3.7 cm. Just below the subdermal this. Wider than tall orientation. Posterior acoustic enhancement. Nonvascular. Mostly solid with small anechoic regions. No air-fluid level or fluid fluid level. IMPRESSION: 4.9 cm subcutaneous mass lateral left lower leg; more likely to represent hematoma than abscess with mostly solid components. No fluid fluid level or air-fluid level. Not vascular. Consider percutaneous aspiration. Electronically signed by: Parminder Falcon MD 11/14/2019 1:44 PM CDT
--- NOTE | 2019-11-14 15:12 | CONS ---
DATE OF CONSULTATION: 11/14/19 HISTORY OF PRESENT ILLNESS: The patient is an 88-year-old male who was admitted Wednesday evening for a tender mass on his left lower leg. The patient states that he hit it four days prior to admission with swelling. There is now redness over it. He was started on oral antibiotics as an outpatient, but it has worsened. He denies fever or chills, body aches. He states it is quite painful with weightbearing or palpation. The patient denies chest pain, shortness of breath, history of blood clots. PAST MEDICAL HISTORY: 1. Asthma. 2. Coronary artery disease. 3. Hypertension. 4. Diabetes. MEDICATIONS: 1. Allopurinol. 2. Eliquis. 3. Aspirin. 4. Lipitor. 5. Vitamin B12. 6. Diltiazem. 7. Doxazosin. 8. Furosemide. 9. Lisinopril. 10. Metformin. 11. Sotalol. 12. Benadryl. ALLERGIES: NO KNOWN DRUG ALLERGIES. FAMILY HISTORY: Unremarkable. SOCIAL HISTORY: He has no history of tobacco or alcohol abuse. PHYSICAL EXAMINATION: GENERAL: The patient is awake, alert, cooperative. He is conversant, but hard of hearing. HEENT: Sclerae nonicteric. Mucous membranes moist. NECK: Without adenopathy. BACK: Without CVA tenderness. CHEST: Equal breath sounds bilaterally. ABDOMEN: Soft and benign. EXTREMITIES: The right lower extremity reveals some edema, but is nontender. The left lower extremity has pitting edema involving the foot and ankle. There is erythema and tenderness overlying a soft, fluctuant mass on the lateral aspect of the left leg. IMAGING: Ultrasound of this area was consistent with a hematoma. He also underwent a lower extremity ultrasound which revealed no blood clots. Plain x- ray reveals no fracture. LABORATORY: White blood cell count was 8.5 with 72% neutrophils, hemoglobin 11.7, platelet count 212,000. Coagulation studies revealed PT 11.0, normal INR. Glucoses have been between 70 and 110. BNP 305. Potassium 4.2. ASSESSMENT: 1. Hematoma with cyanosis of the overlying skin with fluctuance with no sign of acute infectious process. 2. History of congestive heart failure. 3. Hypertension. 4. Diabetes. PLAN: Incision and drainage under anesthesia. We will culture the fluid, but generally wash it out and pack it. The patient will be discharged with home health for dressing changes. #[id number] [facility]
--- NOTE | 2019-11-14 15:40 | RAD ---
EXAM DESCRIPTION: Chest,1 View CLINICAL HISTORY: 88 years Male, pre-op COMPARISON: Previous chest x-ray May 09, 2016 TECHNIQUE: AP portable chest. FINDINGS: Heart size is prominent with normal pulmonary vascularity. Calcified aortic arch. Deformity of the right clavicle consistent with old healed fracture. No consolidating infiltrate. No pulmonary mass or worrisome nodule. No pneumothorax or pleural effusion. Degenerative narrowing of the bilateral glenohumeral joints with high riding humeri consistent with chronic rotator cuff tears/atrophy degenerative changes of the left AC joint. IMPRESSION: Large heart without congestive failure. Electronically signed by: Calixto Morse MD 11/14/2019 3:38 PM CDT
[2019-11-14] MEDS: VANCOMYCIN HCL INJ 1,000 MG, VANCOMYCIN HCL INJ 500 MG in SODIUM CHLORIDE 0.9% 250ML 25... IVPB SCH (16:08)
[2019-11-14] MEDS: ATORVASTATIN 20 MG TAB PO SCH (20:54)
[2019-11-14] MEDS: diphenhydrAMINE HCL 25 MG CAP PO PRN (20:55)
[2019-11-15] MEDS: cefTRIAXone SODIUM 1 GM in SODIUM CHL 0.9% 50ML MIN-BAG+ 50 ML IVPB SCH (00:33)
[2019-11-15] MEDS ORDERED: PROPOFOL 200 MG/20 ML VIAL IV ONE (07:00)
--- NOTE | 2019-11-15 08:01 | PN ---
SUPERVISING PHYSICIAN: Zan Paz MD DATE: 11/14/19 SUBJECTIVE: The patient is still having some pain down in that left lower extremity. It still remains swollen. He has not had any chest pain, no reported shortness of breath. He remains afebrile. OBJECTIVE: VITAL SIGNS: Temperature 97.6, pulse 60, blood pressure 115/76, respirations 16, saturation 95% on room air. GENERAL: The patient is resting comfortably, does not look to be in any distress. He is alert. CHEST: Lungs are clear to auscultation bilaterally. HEART: Regular rate and rhythm. ABDOMEN: Soft, nontender. Positive bowel sounds. EXTREMITIES: Left lower extremity shows continued edema with some tenderness to the left lower extremity on the lateral aspect involving the foot and ankle that is still showing some pitting edema. There is notable tenderness overlying the soft, fluctuant mass on the lateral aspect of the left leg. The area looks to be unchanged from admission. NEUROLOGIC: Alert and oriented times three. LABORATORY: White count was within normal limits at 8,500 with ESR 22. Chemistries showed normal electrolytes on admission as well as renal function. Blood sugars ranged between 68 and 142. RADIOLOGY: Chest x-ray this morning shows no acute findings per radiologic interpretation. Soft tissue ultrasound along with DVT studies shows no DVT of the lower extremity identified, but there is a 4.9 cm subcutaneous mass on the lateral lower left leg, more likely hematoma than abscess and mostly solid components. No fluid-fluid level or air-fluid level noted. ASSESSMENT: 1. Soft tissue hematoma of the left lower extremity with concerns for developing cellulitis, requiring surgical consultation with incision and drainage pending. 2. History of congestive heart failure. 3. Hypertension. 4. Diabetes mellitus, type 2. PLAN: Dr. Christiansen has seen the patient in consultation and plans to do an incision and drainage under anesthesia in the morning. He will do a culture, wash it out and pack it. The patient will need home health on discharge for dressing changes since he does live by himself. We will recheck labs in the morning as necessary including BMP. I have already done an EKG and it is pending and a chest x-ray. I anticipate either discharging later tomorrow or possibly Wednesday, again, pending what they find in surgery and getting arrangements for him before he can return home. He will continue on antibiotics with Rocephin and vancomycin at this point and we will defer further management to Dr. Christiansen. Until the patient can transition to outpatient management, we will continue to monitor and treat as needed. [facility][id number] [facility]
[2019-11-15] MEDS ORDERED: SUCCINYLCHOLINE CHLORIDE 200 MG/10 ML VIAL ONE (08:20)
[2019-11-15] MEDS ORDERED: ROCURONIUM BROMIDE 10 MG/ML VIAL ONE (08:20)
[2019-11-15] MEDS: INSULIN LISPRO 100 UNITS/ML PEN SUBCU SCH ×4 (08:25→21:20)
[2019-11-15] MEDS: SOTALOL 80 MG TAB PO SCH ×2 (08:29→21:17)
[2019-11-15] MEDS: METOPROLOL TARTRATE 25 MG TAB PO SCH ×2 (08:30→21:18)
[2019-11-15] MEDS ORDERED: DEX 5% W/NACL 0.9% 1000ML 1,000 ML IVS ONE (09:34)
[2019-11-15] MEDS ORDERED: LIDOCAINE 1% 50 ML VIAL INJ ONE ×2 (09:44→10:26)
[2019-11-15] MEDS ORDERED: IODOFORM 1INCH 1 EA BTTL TOP ONE (09:53)
[2019-11-15] MEDS ORDERED: KETAMINE HCL 100 MG/ML VIAL ONE (10:05)
--- NOTE | 2019-11-15 10:49 | OP ---
DATE OF PROCEDURE: 11/15/19 PREOPERATIVE DIAGNOSIS: 1. Hematoma, left leg. POSTOPERATIVE DIAGNOSIS: 1. Hematoma, left leg. PROCEDURE PERFORMED: 1. Incision and drainage of hematoma, left leg. SURGEON: Eric Christiansen MD. BOX CLOSING MACHINE OPERATOR: None. ANESTHESIA: Local infiltration of 1% lidocaine and IV sedation by Anesthesia. INDICATION: The patient is an 88-year-old male who hit his leg several days ago. He was admitted with erythema and tenderness over the left leg. He had a normal white count and no fever. Eventually, a workup revealed no DVT, but a subcutaneous mass consistent with a hematoma. He was brought to the Surgical Suite this morning for incision and drainage and packing of same along with obtaining a culture. FINDINGS: There was approximately 15 to 20 cc of clot and some blood. Culture was taken. There was no odor. DESCRIPTION OF PROCEDURE: The patient was brought to the Surgical Suite and placed in supine position. He was prepped and draped in the usual manner. IV sedation was obtained by Anesthesia and a surgical time-out was taken. When this was done, local anesthesia was obtained with 1% lidocaine infiltration, then an elliptical incision was fashioned over the mass with a sharp knife. The skin was removed. A culture was taken at this point and then using blunt dissection, pressure and irrigation, the majority of the clot was removed. Hemostasis was noted to be adequate. The wound was then packed with 1-inch Betadine-soaked Nu-Gauze. Sterile dressing was applied. The patient tolerated the procedure well. Estimated blood loss was approximately 20 cc of blood and clot. All sponge, needle and instrument counts were correct. #[id number] [facility]
[2019-11-15] MEDS ORDERED: DEXTROSE 5% 1000ML 1,000 ML IVS ONE (10:50)
[2019-11-15] MEDS: metFORMIN HCL 500 MG TAB PO SCH (12:11)
[2019-11-15] MEDS: DOXAZOSIN MESYLATE 2 MG TAB PO SCH (12:11)
[2019-11-15] MEDS: ALLOPURINOL 300 MG TAB PO SCH (12:11)
[2019-11-15] MEDS: ASPIRIN (ENTERIC COATED) 81 MG TAB PO SCH (12:12)
[2019-11-15] MEDS: FUROSEMIDE 40 MG TAB PO SCH (12:12)
[2019-11-15] MEDS: CYANOCOBALAMIN 1,000 MCG TAB PO SCH (12:16)
[2019-11-15] MEDS: LISINOPRIL 10 MG TAB PO SCH (12:16)
[2019-11-15] MEDS: APIXABAN 5 MG TAB PO SCH ×2 (12:19→21:19)
--- NOTE | 2019-11-15 14:04 | PN ---
SUPERVISING PHYSICIAN: Zan Paz MD DATE: 11/15/19 SUBJECTIVE: The patient just got back from surgery from having an I&D done on that left ankle hematoma. He is doing well. He has no complaints. OBJECTIVE: VITAL SIGNS: Temperature 98.7, pulse 56, blood pressure 135/63, respirations 16, saturation 96% on 2 liters nasal cannula. GENERAL: The patient is resting comfortably, does not appear to be in any acute distress. He is alert and oriented x3. CHEST: Lungs are clear to auscultation. HEART: Regular rate and rhythm. ABDOMEN: Soft, nontender. Positive bowel sounds. EXTREMITIES: Left lower extremity has a dressing in place postoperatively from I&D incision for hematoma. No obvious signs of infection. NEUROLOGIC: Alert and oriented times three. LABORATORY: Chemistry today shows normal electrolytes. BUN 27, creatinine 0.82. Blood sugars ranging between 84 and 223. Calcium 8.5. BNP 118. ASSESSMENT: 1. Soft tissue hematoma of the left lower extremity status post incision and drainage. 2. History of congestive heart failure without signs of exacerbation. 3. Hypertension, stable. 4. Diabetes mellitus, type 2, stable. PLAN: The patient will recover this afternoon postoperatively from incision and drainage of hematoma. I did talk with Dr. Christiansen. He wants to resume all orders as previous prior to the procedure except for his antibiotics. He wants us to stop those. He did not really see any true signs of infection. We will resume his home medications tonight including his Eliquis. He will get physical therapy today. We are working to get arrangements for home health and wound management once he is discharged. Until then, we will continue to monitor and treat as needed with anticipation of discharging tomorrow. #[id number] [facility]
[2019-11-15] MEDS: ATORVASTATIN 20 MG TAB PO SCH (21:19)
[2019-11-15] MEDS: diphenhydrAMINE HCL 25 MG CAP PO PRN (21:21)
[2019-11-16] MEDS: IV SET AND CAP CHANGE INJ INJ SCH (02:40)
[2019-11-16] MEDS: INSULIN LISPRO 100 UNITS/ML PEN SUBCU SCH ×2 (07:15→12:16)
[2019-11-16] MEDS ORDERED: POTASSIUM CHLORIDE 10 MEQ TAB PO SCH (07:30)
[2019-11-16] MEDS: metFORMIN HCL 500 MG TAB PO SCH (09:12)
[2019-11-16] MEDS: ASPIRIN (ENTERIC COATED) 81 MG TAB PO SCH (09:13)
[2019-11-16] MEDS: SOTALOL 80 MG TAB PO SCH (09:14)
[2019-11-16] MEDS: APIXABAN 5 MG TAB PO SCH (09:14)
[2019-11-16] MEDS: METOPROLOL TARTRATE 25 MG TAB PO SCH (09:15)
[2019-11-16] MEDS: LISINOPRIL 10 MG TAB PO SCH (09:15)
[2019-11-16] MEDS: DOXAZOSIN MESYLATE 2 MG TAB PO SCH (09:16)
[2019-11-16] MEDS: FUROSEMIDE 40 MG TAB PO SCH (09:17)
[2019-11-16] MEDS: CYANOCOBALAMIN 1,000 MCG TAB PO SCH (09:17)
[2019-11-16] MEDS: ALLOPURINOL 300 MG TAB PO SCH (09:18)
--- NOTE | 2019-11-16 13:24 | DS ---
SUPERVISING PHYSICIAN: Zan Paz MD DISCHARGE DIAGNOSIS: 1. Soft tissue hematoma of the left lower extremity status post incision and drainage per Dr. Greg Christiansen, general surgeon. 2. History of congestive heart failure without signs or symptoms of exacerbation. 3. Hypertension, stable. 4. Diabetes mellitus, type 2, stable. HISTORY OF PRESENT ILLNESS: This is an 88-year-old male patient that has a history of diabetes, congestive heart failure, hypertension and atrial fibrillation on Eliquis. Four days prior to his admission, he was at home and sustained an injury to the lateral aspect of his left lower leg while attempting to clean a cast iron skillet outside. He went to step up and misjudged the height and hit the edge of the step with his left leg. He saw Flavia Guerra in the walk-in clinic in [place] and was treated for questionable cellulitis. He was started on clindamycin at that time. The lateral aspect of his left leg continued to increase in size and became more tender to touch. He came to the Emergency Room and was found to have a normal white count at 8,500 without a left shift. ESR was elevated at 22 but his CPR was normal. Chemistry showed normal electrolytes with BUN of 29, creatinine 0.87, BNP was a little elevated at 305. Blood sugar was 85. X-rays of his left lower extremity were without acute findings. There were no complaints of acute fevers, chills or body aches, but noted he was quite tender when he applied weight to that left leg. He was placed in observation for surgical consultation with Dr. Eric Christiansen, general surgeon. HOSPITAL COURSE: The patient was seen in consultation by Dr. Christiansen with initial plans to do an I&D the following morning. He was given antibiotics to cover any developing cellulitis with Rocephin and vancomycin. He was started on sliding scale insulin as well as his home medications. He was taken to surgery and had no problems during his I&D. He was brought to the Floor for observation overnight. Previous orders were resumed except for antibiotic therapy. Dr. Christiansen stated he did not see any true signs or symptoms of infection, but C&S was done on the wound. His home medications were resumed. Dr. Christiansen requested the patient have wound care as an outpatient. Today, we discussed that he would see [facility] with daily baths prior to his wound care as well as physical therapy evaluation and treatment. He will be discharged home today in stable condition. LABORATORY: Mostly as per history of present illness. His blood sugars have run between 68 and a high of 223. His preliminary gram stain was negative on his wound culture. Her preliminary blood cultures showed no growth after 3 days. His preliminary culture on his wound was also negative. His x-rays are per the EMR. His left lower extremity ultrasound shows 1) Duplex ultrasound evaluation of the left lower extremity DVT system showed no evidence of thrombosis. 2) Minimal interstitial edema in the subcutaneous adipose tissue of the left calf. His preoperative chest x-ray shows large heart without congestion failure. DISCHARGE PLAN: The patient will be discharged home in stable condition. He is to resume his previous diabetic diet and increase his activity as tolerated. He will have an evaluation per [facility] physical therapy and they will treat as needed. He is to followup with BETH Benton, within [address] Christiansen has requested that he followup with him in clinic in [address] Christiansen also requested that the patient have a [facility] do a shower prior to his wound care and then daily wound care. We also would appreciate physical therapy to evaluate and treat. He will resume his previous medications that he takes routinely. He is to return to the hospital or followup with Dr. Christiansen for any problems or complications. I have contacted [facility] with request and orders as above. DISCHARGE MEDICATIONS: 1. Cyanocobalamin. 2. Aspirin. 3. Furosemide. 4. Doxazosin. 5. Allopurinol. 6. Lisinopril. 7. Lipitor. 8. Metformin. 9. Sotalol. 10. Eliquis. 11. Diphenhydramine. 12. Metoprolol tartrate. [facility][id number] [facility]
[2019-11-16 14:34] VITALS: BP 132/70; TEMP 98; O2SAT 94
== END 2019-11-16 14:10 | disposition home health service (06) | DRG 580 ==
LOC: ER 14:50 → OBSVTOIN 21:58 → MS 21:58
PROVIDERS: ADMIT Nurse Practitioner Family; ATTEND Nurse Practitioner Family
PROC: 0J9P0ZZ Drainage of Left Lower Leg Subcutaneous Tissue and Fascia, Open Approach (ICD-10-PCS; principal; 2019-11-15 09:41)
DX: S80.12XA Contusion of left lower leg, initial encounter (principal); L03.116 Cellulitis of left lower limb; W01.198A Fall on same level from slipping, tripping and stumbling with subsequent striking against other object, initial encounter; I11.0 Hypertensive heart disease with heart failure; I50.9 Heart failure, unspecified; E78.5 Hyperlipidemia, unspecified; I48.91 Unspecified atrial fibrillation; E11.9 Type 2 diabetes mellitus without complications; J45.909 Unspecified asthma, uncomplicated; I25.10 Atherosclerotic heart disease of native coronary artery without angina pectoris; H91.90 Unspecified hearing loss, unspecified ear; Z79.01 Long term (current) use of anticoagulants; Z79.82 Long term (current) use of aspirin; Z79.84 Long term (current) use of oral hypoglycemic drugs; Z79.899 Other long term (current) drug therapy; Y92.099 Unspecified place in other non-institutional residence as the place of occurrence of the external cause; Z95.5 Presence of coronary angioplasty implant and graft

== ENCOUNTER 2020-03-14 16:50 | Inpatient (IN) | payer MEDICARE ==
[2020-03-14] MEDS ORDERED: SODIUM CHLORIDE 0.9% 1000ML 1,000 ML IVS ONE ×2 (18:13→20:34)
--- NOTE | 2020-03-14 18:17 | CT ---
EXAM: CT head CLINICAL INDICATION: Altered mental status COMPARISON: There is no previous study for comparison. TECHNIQUE: CT scan was done using contiguous axial 5 mm sections through the brain. This exam was performed according to our departmental dose-optimization program, which includes automated exposure control, adjustment of the mA and/or kV according to patient size and/or use of iterative reconstruction technique. FINDINGS: There is no midline shift, mass effect, or extraaxial fluid collection. There is no evidence of acute intracranial hemorrhage, mass lesion, or cerebral edema. There is moderate diffuse cerebral atrophy. Bone window images reveal no evidence of a skull fracture. IMPRESSION: No evidence of an acute intracranial process. Electronically signed by: Sony Fowler MD 03/14/2020 6:16 PM [facility]
--- NOTE | 2020-03-14 18:18 | RAD ---
EXAM: Chest,1 View CLINICAL INDICATION: Shortness of breath COMPARISON: 11/14/2019 FINDINGS: A single view of the chest was obtained. The heart size is moderately enlarged. The pulmonary vascularity is unremarkable. The lungs are clear. There is no consolidation, infiltrate, pleural effusion, or pneumothorax. IMPRESSION: No evidence of active pulmonary disease. Electronically signed by: Sony Fowler MD 03/14/2020 6:16 PM [facility]
[2020-03-14] MEDS ORDERED: CEFEPIME 2 GM in SODIUM CHL 0.9% 100ML MINI-BAG 100 ML IVPB ONE (20:02)
--- NOTE | 2020-03-14 20:20 | CT ---
CT OF THE CHEST, ABDOMEN, AND PELVIS HISTORY: Shortness of breath. Abdominal pain. COMPARISON: None. TECHNIQUE: 1. CT angiogram of the chest was performed with IV contrast. 3-D MIPS sagittal and coronal reconstructions were obtained in postprocessing. 2. CT scan of the abdomen and pelvis was performed with IV contrast. This exam was performed according to our departmental dose-optimization program, which includes automated exposure control, adjustment of the mA and/or kV according to patient size and/or use of iterative reconstruction technique. FINDINGS: The thyroid gland is unremarkable. No mediastinal or hilar adenopathy. The heart size is enlarged but without pericardial effusion. No consolidation, pleural effusion, or pneumothorax. The liver, spleen, pancreas, gallbladder, adrenal glands, and kidneys are unremarkable. The prostate gland is enlarged and abuts the posterior urinary bladder. There is mild bladder wall thickening. There is a moderate amount stool in the colon and rectum. There are scattered colonic diverticula without surrounding inflammatory changes. No small bowel obstruction or inflammation. There is no evidence of acute appendicitis. No intraperitoneal free fluid or free air is seen. No filling defects are seen in the pulmonary trunk or the left and right main pulmonary artery. There is limited evaluation of the segmental branches due to motion artifact. The aorta is normal caliber and contains atherosclerotic calcifications. There are degenerative changes throughout the thoracolumbar spine. No abnormal body wall hernia is identified. IMPRESSION: 1. No central pulmonary was not is seen. 2. Mild wall thickening of the urinary bladder which may represent cystitis. Please correlate with urinalysis. 3. Colonic diverticulosis without acute inflammation. Electronically signed by: Bon Benson MD 03/14/2020 8:18 PM [facility]
[2020-03-14] MEDS ORDERED: levoFLOXacin 500MG IV 500 MG in PREMIX BAG 1 BAG IVPB ONE (20:34)
--- NOTE | 2020-03-14 20:42 | ED.PDOC ---
History of Present Illness - General Chief Complaint: Respiratory Problem Stated Complaint: shortness of breath Time Seen by Provider: 03/14/20 17:30 Source: patient Exam Limitations: no limitations - History of Present Illness Initial Comments: Patient is an 89-year-old male presented emergency room largely obtunded. He will withdraw to pain and motor something. He does protect his airway and he is able to move all extremities. He had apparently talked to his granddaughter an hour or 2 before and told her that he was weak and short of breath. She reports that he was slurring his speech at that time. That was over the phone. He has had a history of recurrent urinary tract infections in the fairly recent past. No known coronavirus exposure. The patient has not initially hypoxic nor is he hypotensive. He is mildly tachycardic. He does have a history of A. fib with RVR. He reported that he had had a fever earlier in the day. Later on when the patient was more lucid he denied any chest pain of any form and no palpitations. Timing/Duration: unsure Severity: severe Improving Factors: nothing Worsening Factors: nothing Associated Symptoms: loss of appetite, malaise, nausea/vomiting, shortness of breath, weakness Allergies/Adverse Reactions: Allergies NO KNOWN ALLERGY Allergy (Verified 11/12/19 18:03) Home Medications: Ambulatory Orders Allopurinol 300 mg PO DAILY 12/05/18 Apixaban [Eliquis] 2.5 mg PO BID 12/05/18 Aspirin [Aspirin EC] 81 mg PO DAILY 12/05/18 Atorvastatin Calcium [Lipitor] 20 mg PO DAILY 12/05/18 Cyanocobalamin [Vitamin B-12] 1,000 mcg PO DAILY 12/05/18 Doxazosin Mesylate 4 mg PO DAILY 12/05/18 Furosemide 40 mg PO DAILY 12/05/18 Lisinopril 20 mg PO DAILY 12/05/18 Metformin HCl [Metformin Hydrochloride E] 250 mg PO DAILY 12/05/18 Sotalol [Betapace] 40 tablet PO BID 12/05/18 diphenhydrAMINE HCL [Benadryl] 75 mg PO PRN PRN 12/05/18 Metoprolol Tartrate 12.5 mg PO BID 11/12/19 Review of Systems - Review of Systems Constitutional: States: malaise, weakness EENTM: States: no symptoms reported Respiratory: States: short of breath Cardiology: States: no symptoms reported Gastrointestinal/Abdominal: States: nausea Genitourinary: States: frequency Musculoskeletal: States: no symptoms reported Skin: States: no symptoms reported Neurological: States: see HPI Endocrine: States: no symptoms reported All other Systems: No Change from Baseline Past Medical History (General) - Patient Medical History Hx Seizures: No Hx Stroke: No Hx Asthma: No Hx of COPD: No Hx Cardiac Disorders: Yes - stent Hx Congestive Heart Failure: No Hx Pacemaker: No Hx Hypertension: No Hx Diabetes: Yes Hx Cancer: No Hx MRSA: No Surgical History: other - Vaccination History Hx Tetanus, Diphtheria Vaccination: Yes Hx Influenza Vaccination: Yes Hx Pneumococcal Vaccination: Yes - Social History Hx Tobacco Use: No Hx Alcohol Use: No Hx Substance Use: No Hx Substance Use Treatment: No Hx Depression: No Hx Physical Abuse: No Hx Emotional Abuse: No - Female History Patient : No Family Medical History - Family History Father Family History: Unknown Living Status: Physical Exam - Physical Exam General Appearance: Lethargic, Ill Appearing Eye Exam: bilateral normal Ears, Nose, Throat: hearing grossly normal, normal pharynx - dryh Neck: non-tender, supple Respiratory: lungs clear, normal breath sounds, no respiratory distress, no accessory muscle use Cardiovascular/Chest: normal peripheral pulses, no edema, tachycardia Peripheral Pulses: radial,right: 2+, radial,left: 2+ Gastrointestinal/Abdominal: non tender, soft Rectal Exam: deferred Back Exam: no CVA tenderness, no vertebral tenderness Extremity: non-tender, normal inspection, no pedal edema, normal capillary refill Neurologic: other - Initially obtunded significantly. Moves all extremities to pain. Will mumble spontaneously. Will open his eyes if he is yelled at initially. Mental status does improve significantly throughout the stay. Skin Exam: pallor Comments: Vital Signs - 24 hr 03/14/20 03/14/20 03/14/20 17:16 18:00 18:50 Temperature 97.2 F L 98.3 F Pulse Rate [ 105 H 104 H 96 H left brachial] Respiratory 24 16 18 Rate Blood Pressure 154/79 148/94 150/76 [right brachial ] O2 Sat by Pulse 92 L 93 L 92 L Oximetry 03/14/20 20:00 Temperature Pulse Rate [ 92 H left brachial] Respiratory 16 Rate Blood Pressure 131/64 [right brachial ] O2 Sat by Pulse 94 L Oximetry Progress - Progress Progress: 03/14/20 20:45 The patient is an 89-year-old male presents emergency room in an obtunded state, encephalopathic likely due to metabolic encephalopathy related to urosepsis. Urine is being cultured. The patient is being started on cefepime and Levaquin. The patient has a significant lactic acidosis and has received 2 L of IV fluids so far and will likely require more slowly corrected deficit. The patient is mentating much better at this point. CT scans of the head chest abdomen pelvis are reassuring otherwise. Admit for treatment of issues above. He did test negative for coronavirus here today. bria wilde Guy Critical care time spent for above issues is 40 minutes. - Results/Orders Results/Orders: EKG shows sinus tachycardia 105 bpm. Mild left axis deviation block. 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 No definitive ST segment or T wave changes indicative of acute ischemia. Left atrial dilation. Chronic old poor R wave progression in anterior leads. There is a prolonged QT interval. Laboratory Tests 03/14/20 03/14/20 03/14/20 17:40 17:40 17:40 WBC 4.0 L RBC 3.72 L Hgb 12.4 L Hct 36.1 L MCV 97.1 H MCH 33.4 H MCHC 34.4 RDW 15.2 H Plt Count 235 MPV 8.6 Absolute Neuts (auto) 3.80 Absolute Lymphs (auto) 0.10 L Absolute Monos (auto) 0.00 L Absolute Eos (auto) 0.00 Absolute Basos (auto) 0.00 Neutrophils % 95.5 H Lymphocytes % 2.7 L Monocytes % 0.6 L Eosinophils % 0.1 L Basophils % 1.1 PT 11.9 H INR 1.20 H PTT (SP) 24.1 D-Dimer, Quantitative 1170.0 H* Sodium 140 Potassium 4.2 Chloride 106 Carbon Dioxide 17 L Anion Gap 21.2 H BUN 31 H Creatinine 1.05 BUN/Creatinine Ratio 29.5 H POC Glucose Random Glucose 127 H Serum Osmolality 287.5 Lactic Acid Calcium 8.5 Total Bilirubin 1.3 H AST 27 ALT 18 Alkaline Phosphatase 65 Creatine Kinase 56 CK-MB (CK-2) 1.5 CK-MB (CK-2) % Not Reportable Troponin I 0.02 B-Natriuretic Peptide 326.0 H* Serum Total Protein 7.4 Albumin 4.2 Globulin 3.2 Albumin/Globulin Ratio 1.3 Amylase 80 Lipase 35 Urine Color Urine Appearance Urine pH Ur Specific [place] Urine Protein Urine Glucose (UA) Urine Ketones Urine Blood Urine Nitrite Urine Bilirubin Urine Urobilinogen Ur Leukocyte Esterase Urine RBC Urine WBC Ur Epithelial Cells Urine Bacteria 03/14/20 03/14/20 03/14/20 17:40 17:40 18:38 WBC RBC Hgb Hct MCV MCH MCHC RDW Plt Count MPV Absolute Neuts (auto) Absolute Lymphs (auto) Absolute Monos (auto) Absolute Eos (auto) Absolute Basos (auto) Neutrophils % Lymphocytes % Monocytes % Eosinophils % Basophils % PT INR PTT (SP) D-Dimer, Quantitative Sodium Potassium Chloride Carbon Dioxide Anion Gap BUN Creatinine BUN/Creatinine Ratio POC Glucose 134 H Random Glucose Serum Osmolality Lactic Acid 5.8 H* Calcium Total Bilirubin AST ALT Alkaline Phosphatase Creatine Kinase CK-MB (CK-2) CK-MB (CK-2) % Troponin I B-Natriuretic Peptide Serum Total Protein Albumin Globulin Albumin/Globulin Ratio Amylase Lipase Urine Color Ruth Urine Appearance Cloudy Urine pH >= 9.0 H* Ur Specific [place] 1.015 Urine Protein 100 H Urine Glucose (UA) Negative Urine Ketones Negative Urine Blood Large H Urine Nitrite Positive H Urine Bilirubin Negative Urine Urobilinogen 1.0 Ur Leukocyte Esterase Large H Urine RBC >50 H Urine WBC 10-20 H Ur Epithelial Cells 0 Urine Bacteria 4+ H CT scan of the head shows no acute pathology. CT scan of the chest with angiography showed no evidence of pulmonary embolus or aortic pathology. There is mild cardiomegaly. CT scan abdomen pelvis shows cystitis along with chronic changes. See reports of above for details. Departure - Departure Clinical Impression: Recurrent cystitis, Lactic acidosis, Metabolic encephalopathy Sepsis Qualifiers: Sepsis type: sepsis due to unspecified organism Sepsis acute organ dysfunction status: with acute organ dysfunction Severe sepsis acute organ dysfunction type: encephalopathy Severe sepsis shock status: with septic shock Qualified Code(s): A41.9 - Sepsis, unspecified organism; R65.21 - Severe sepsis with septic shock; G93.40 - Encephalopathy, unspecified Disposition: Admit Patient Condition: Poor Departure Forms: ED Discharge - Pt. Copy, Patient Portal Self Enrollment Referrals: Flavia Guerra NP [Primary Care Provider] - 1-2 Weeks Home Medications: Ambulatory Orders Allopurinol 300 mg PO DAILY 12/05/18 Apixaban [Eliquis] 2.5 mg PO BID 12/05/18 Aspirin [Aspirin EC] 81 mg PO DAILY 12/05/18 Atorvastatin Calcium [Lipitor] 20 mg PO DAILY 12/05/18 Cyanocobalamin [Vitamin B-12] 1,000 mcg PO DAILY 12/05/18 Doxazosin Mesylate 4 mg PO DAILY 12/05/18 Furosemide 40 mg PO DAILY 12/05/18 Lisinopril 20 mg PO DAILY 12/05/18 Metformin HCl [Metformin Hydrochloride E] 250 mg PO DAILY 12/05/18 Sotalol [Betapace] 40 tablet PO BID 12/05/18 diphenhydrAMINE HCL [Benadryl] 75 mg PO PRN PRN 12/05/18 Metoprolol Tartrate 12.5 mg PO BID 11/12/19 Decision To Admit - Decistion To Admit Decision to Admit Reason: Medical Nature Decision to Admit Date: 03/14/20 Decision to Admit Time: 20:48
[2020-03-14] MEDS ORDERED: SODIUM CHLORIDE 0.9% (FLUSH) 10 ML SYG IV PRN (22:03)
[2020-03-14] MEDS ORDERED: IV SET AND CAP CHANGE INJ INJ SCH (22:30)
--- NOTE | 2020-03-14 22:37 | HP ---
SUPERVISING PHYSICIAN: Clemente Owen MD CHIEF COMPLAINT: Shortness of breath, altered mental status. HISTORY OF PRESENT ILLNESS: This is an 89-year-old male patient who came to the Emergency Room mainly for decreased level of consciousness. Apparently earlier in the evening, the patient complained of weakness and shortness of breath. He also had some slurred speech. He has a history of recurrent urinary tract infections. In the Emergency Room, his workup included labs and films. CT scan of the head did not show any acute intracranial process. Chest x-ray with no active disease. CTA of the chest showed no pulmonary embolism and no acute inflammatory process. CT scan of the abdomen and pelvis showed no acute process. Labs showed WBC 4.0, 95% neutrophil shift. D-dimer was 1170. Elevation of BUN at 31 on chemistry with CO2 17. BNP 326. Lactic acid 5.8. Urinalysis was done and was positive for nitrites and significant for urinary tract infection. In the Emergency Room, the patient was given a 2 liter bolus of IV fluids as well as Levaquin and cefepime. Towards the end of his ER stay, the patient was more alert and conversant than he was on initial presentation. However, given the concern for sepsis secondary to urinary tract infection, the patient was referred for admission. This morning at time of examination, the patient is sitting up in the chair. He states he does feel better. PAST MEDICAL HISTORY: 1. Asthma. 2. Coronary artery disease. 3. Hypertension. 4. Diabetes. 5. Atrial fibrillation. 6. Frequent urinary tract infections. PAST SURGICAL HISTORY: 1. Cardiac stent placement. MEDICATIONS: Please see med rec list once verified in the computer. ALLERGIES: NO KNOWN DRUG ALLERGIES. FAMILY HISTORY: Reviewed and noncontributory to his current status. SOCIAL HISTORY: Nondrinker, nonsmoker, no illicit drugs. REVIEW OF SYSTEMS: CONSTITUTIONAL: Positive for fever and fatigue. No chills. HEENT: No headaches, vision changes, ear pain, nasal congestion or throat pain. RESPIRATORY: No cough, hemoptysis or pleuritic chest pain. CARDIOVASCULAR: No chest pain, palpitations or peripheral edema. GASTROINTESTINAL: No nausea, vomiting, diarrhea, constipation or abdominal pain. GENITOURINARY: No dysuria, frequency or flank pain. ENDOCRINE: No polydipsia, polyuria or polyphagia. No heat or cold intolerance. NEUROLOGIC: No syncope, paresthesias or seizures, however, he did have altered mental status prior to coming to the hospital. HEMATOLOGIC: Positive for easy bruising, but no transfusion reaction. SKIN: No rashes, lesions or wounds. PHYSICAL EXAMINATION: VITAL SIGNS: Blood pressure 131/64, heart rate 92, respiratory rate 16, temperature 98.3. Oxygen saturation 94%. GENERAL: Mr. Thapa is an 89-year-old male patient in no active distress currently. NEUROLOGIC: The patient is alert. LUNGS: Diminished at the bases, otherwise clear to auscultation bilaterally. CARDIOVASCULAR: Irregular rate and rhythm. Normal S1, S2. ABDOMEN: Soft. Positive bowel sounds. EXTREMITIES: Lower extremities with no significant edema. LABORATORY: This morning, labs show increased white count of 13.2 with 96% neutrophils. Hemoglobin 10.4. Chemistry with improvement in CO2 to 20. BUN 32, creatinine 1.03. Lactic acid did improve to 1.5. IMPRESSION: 1. Sepsis secondary to urinary tract infection. 2. Hypertension. 3. Diabetes mellitus. 4. Atrial fibrillation on chronic Eliquis therapy. 5. Asthma with no acute exacerbation. PLAN: The patient is being treated with broad spectrum antibiotics with cefepime at this time. Given the increase in the white count, I am going to escalate to Merrem. We are still awaiting cultures at this time. We will resume all of his other home medications once verified in the computer. This will include his Eliquis for anticoagulation. I will recheck labs tomorrow. #[id number] [facility]TDD
[2020-03-14] MEDS: LACTATED RINGERS 1,000 ML IVS PRN (23:56)
[2020-03-15] MEDS ORDERED: ACETAMINOPHEN 325 MG TAB PO PRN (05:42)
[2020-03-15] MEDS ORDERED: CEFEPIME 2 GM in SODIUM CHL 0.9% 100ML MINI-BAG 100 ML IVPB SCH (09:00)
[2020-03-15] MEDS: MEROPENEM 1 GM in SODIUM CHL 0.9% 50ML MIN-BAG+ 50 ML IVPB SCH ×2 (10:09→17:29)
[2020-03-15] MEDS: LACTATED RINGERS 1,000 ML IVS PRN ×2 (10:09→22:12)
[2020-03-15] MEDS ORDERED: NON-FORMULARY MEDICATION 1 EA MIS (Apixaban [Eliquis] 2.5 MG) PO SCH (13:30)
[2020-03-15] MEDS ORDERED: APIXABAN 5 MG TAB PO ONE (14:02)
[2020-03-15] MEDS: ALLOPURINOL 300 MG TAB PO SCH (14:16)
[2020-03-15] MEDS ORDERED: diphenhydrAMINE HCL 25 MG CAP PO SCH ×2 (18:00→21:00)
[2020-03-15] MEDS ORDERED: DOXAZOSIN MESYLATE 4 MG PO SCH (18:00)
[2020-03-15] MEDS ORDERED: DOXAZOSIN MESYLATE 2 MG TAB PO SCH (21:00)
[2020-03-15] MEDS ORDERED: ATORVASTATIN 20 MG TAB PO SCH (21:00)
[2020-03-15] MEDS: SOTALOL 80 MG TAB PO SCH (21:57)
[2020-03-15] MEDS: APIXABAN 5 MG TAB PO SCH (22:03)
[2020-03-15] MEDS: METOPROLOL TARTRATE 25 MG TAB PO SCH (22:04)
[2020-03-16] MEDS: MEROPENEM 1 GM in SODIUM CHL 0.9% 50ML MIN-BAG+ 50 ML IVPB SCH (02:19)
[2020-03-16] MEDS ORDERED: metFORMIN HCL 500 MG TAB PO SCH (07:30)
[2020-03-16] MEDS ORDERED: CIPROFLOXACIN 250 MG TAB ONE (08:50)
[2020-03-16] MEDS ORDERED: FUROSEMIDE 40 MG TAB PO SCH (09:00)
[2020-03-16] MEDS ORDERED: ASPIRIN (ENTERIC COATED) 81 MG TAB PO SCH (09:00)
[2020-03-16] MEDS ORDERED: CIPROFLOXACIN 500 MG TAB PO SCH (09:00)
[2020-03-16] MEDS ORDERED: LISINOPRIL 10 MG TAB PO SCH (09:00)
[2020-03-16] MEDS ORDERED: CYANOCOBALAMIN 1,000 MCG TAB PO SCH (09:00)
[2020-03-16] MEDS: SOTALOL 80 MG TAB PO SCH (09:25)
[2020-03-16] MEDS: ALLOPURINOL 300 MG TAB PO SCH (09:25)
[2020-03-16] MEDS: METOPROLOL TARTRATE 25 MG TAB PO SCH (09:26)
[2020-03-16] MEDS: APIXABAN 5 MG TAB PO SCH (09:26)
[2020-03-16] MEDS: LACTATED RINGERS 1,000 ML IVS PRN (09:30)
[2020-03-16 14:33] VITALS: O2SAT 97
[2020-03-16 14:37] VITALS: BP 132/60; TEMP 98
--- NOTE | 2020-03-17 14:09 | DS ---
SUPERVISING PHYSICIAN: Clemente Owen MD ADMISSION DIAGNOSIS: 1. Sepsis secondary to urinary tract infection. 2. Hypertension. 3. Diabetes mellitus. 4. Atrial fibrillation on Eliquis therapy. 5. Asthma with no acute exacerbation. DISCHARGE DIAGNOSIS: 1. Proteus mirabilis urinary tract infection. 2. Hypertension. 3. Diabetes mellitus. 4. Atrial fibrillation on chronic Eliquis therapy. 5. Asthma with no exacerbation. HOSPITAL COURSE: This is an 89-year-old male patient who came to the Emergency Room with decreased level of consciousness. He has a history of urinary tract infections and in the Emergency Room was found to have one. He had a leukocytosis and fever and elevated lactate of 5.8. Lactic acid improved after fluid resuscitation to 1.5. His LFT improved greatly after initiation of antibiotics as well as IV fluids. His urine culture came back as proteus mirabilis and sensitivity was reviewed. He escalated off the Merrem onto Cipro p.o. He has remained afebrile and vital signs acceptable. He was much more alert and strength is better today than on presentation. He will be discharged today in stable condition with a prescription for 10 days of p.o. Cipro. He will need to followup with his primary care physician in one to two weeks. DIET: As per usually diet. ACTIVITIES: As tolerated. #[id number] [facility]
== END 2020-03-16 11:50 | disposition home or self-care (01) | DRG 871 ==
LOC: ER 16:50 → MS 22:36 → OBSVTOIN 22:36
PROVIDERS: ADMIT Nurse Practitioner; ATTEND Nurse Practitioner
PROC: BW251ZZ Computerized Tomography (CT Scan) of Chest, Abdomen and Pelvis using Low Osmolar Contrast (ICD-10-PCS; principal; 2020-03-14)
DX: A41.89 Other specified sepsis (principal); R65.21 Severe sepsis with septic shock; G93.49 Other encephalopathy; N39.0 Urinary tract infection, site not specified; I10 Essential (primary) hypertension; E11.9 Type 2 diabetes mellitus without complications; I48.91 Unspecified atrial fibrillation; Z79.01 Long term (current) use of anticoagulants; J45.909 Unspecified asthma, uncomplicated; B96.4 Proteus (mirabilis) (morganii) as the cause of diseases classified elsewhere; I25.10 Atherosclerotic heart disease of native coronary artery without angina pectoris; Z95.5 Presence of coronary angioplasty implant and graft; Z79.82 Long term (current) use of aspirin; Z79.84 Long term (current) use of oral hypoglycemic drugs; Z79.899 Other long term (current) drug therapy

== ENCOUNTER → 2020-04-05 | Outpatient (CLI) | payer MEDICARE ==
--- NOTE | 2020-04-05 13:33 | MRI ---
Study: MRI of the Right Shoulder. Indication: UNSPECIFIED INJURT OF SHOULDER AND UPPER ARM Technique: Multiplanar, multi sequence MRI of the right shoulder was obtained without intravenous contrast. Comparison: None. Findings: Severe hypertrophic AC joint osteoarthritis. Retracted full-thickness, fullwidth supraspinatus, infraspinatus, and subscapularis tendon tearing with torn tendon fibers retracted medial to the glenoid. Superior migration humeral head. Undersurface remodeling acromion. Moderate atrophy and grade 2 fatty infiltration rotator cuff musculature with associated intramuscular edema. Long head biceps tendon torn and distally retracted. Circumferential labral truncation and degeneration. Severe glenohumeral joint osteoarthritis with extensive grade 4 chondrosis and cortical remodeling. Small to moderate inferior osteophyte formation. Moderate size joint effusion with extensive pericapsular inflammation/edema as well as scattered synovitis. No acute fracture. Impression: Retracted full-thickness, fullwidth supraspinatus, infraspinatus, and subscapularis tendon tearing. Moderate atrophy, grade 2 fatty infiltration, and intramuscular edema rotator cuff musculature. Long head biceps tendon torn and distally retracted. Circumferential labral truncation and degeneration. Severe glenohumeral joint osteoarthritis with a moderate size joint effusion. Severe hypertrophic AC joint osteoarthritis. Electronically signed by: Colby Pierre MD 04/05/2020 1:32 PM [facility]
== END ==
LOC: MRI 12:11
PROVIDERS: ATTEND Nurse Practitioner Family
DX: M75.101 Unspecified rotator cuff tear or rupture of right shoulder, not specified as traumatic (principal); S46.211A Strain of muscle, fascia and tendon of other parts of biceps, right arm, initial encounter; M62.511 Muscle wasting and atrophy, not elsewhere classified, right shoulder; S43.431A Superior glenoid labrum lesion of right shoulder, initial encounter; M19.011 Primary osteoarthritis, right shoulder; M25.411 Effusion, right shoulder; M66.821 Spontaneous rupture of other tendons, right upper arm